=== PATIENT | female | born 1955 ===

== ENCOUNTER 2016-08-25 12:54 | Inpatient (IN) | payer BC ==
[~2016-08-25] VITALS: Ht 162.6 cm; Wt 59.6 kg
[2016-08-25] MEDS ORDERED: PLEASE ENTER HEIGHT AND WEIGHT MC SCH (14:00)
[2016-08-25] MEDS ORDERED: HYDROmorphone 1 MG/ML, 1ML ONE (14:01)
[2016-08-25] MEDS ORDERED: LABETALOL 5MG/ML, 20ML ONE (14:12)
[2016-08-25] MEDS ORDERED: hydrALAzine 20 MG/ML, 1ML IV PRN (14:30)
[2016-08-25] MEDS: ENALAPRILAT 1.25 MG/ML, 2ML IV PRN ×2 (14:53→20:50)
[2016-08-25] MEDS ORDERED: LABETALOL 5MG/ML, 20ML IV PRN (15:00)
[2016-08-25] MEDS ORDERED: CAFFEINE 200 MG PO ONE (15:00)
[2016-08-25] MEDS: FENTANYL PF 100 MCG/2ML IVPush PRN ×4 (15:17→19:04)
[2016-08-25] MEDS: LACTATED RINGERS 1,000 ML IV SCH ×2 (15:22→23:53)
[2016-08-25 15:28] LABS: BLOOD UREA NITROGEN 10 mg/dL (7-18)
[2016-08-25 15:43] LABS: DIFF TOTAL CELLS COUNTED 100 CELL DIFF
[2016-08-25] MEDS: CEFAZOLIN PMX 1GM/50ML 50 ML IV SCH ×2 (16:30→23:52)
[2016-08-25] MEDS: ONDANSETRON 2MG/ML, 2ML IV PRN (18:17)
[2016-08-25] MEDS: DEXAMETHASONE 4 MG/ML, 1ML IVPush SCH (18:18)
[2016-08-25] MEDS ORDERED: ZOLPIDEM 10MG TABLET PO PRN (19:00)
[2016-08-25] MEDS: HYDROmorphone 1 MG/ML, 1ML IV PRN ×2 (19:04→21:32)
[2016-08-25] MEDS: FENTANYL 1500 MCG/30 ML PCA IV PRN (20:19)
[2016-08-25] MEDS ORDERED: ZOLPIDEM 5MG TABLET ONE (21:38)
[2016-08-25] MEDS: LISINOPRIL 10 MG TABLET PO SCH (21:39)
[2016-08-25] MEDS: DOCUSATE 100 MG CAPSULE PO SCH (21:39)
[2016-08-25] MEDS: FAMOTIDINE 20 MG/2 ML IVPush SCH (21:50)
[2016-08-26] MEDS: DEXAMETHASONE 4 MG/ML, 1ML IVPush SCH ×2 (02:34→10:31)
[2016-08-26] MEDS: HYDROmorphone 1 MG/ML, 1ML IV PRN ×6 (02:43→22:14)
[2016-08-26] MEDS: ONDANSETRON 2MG/ML, 2ML IV PRN ×2 (02:49→08:41)
[2016-08-26 03:47] LABS: BLOOD UREA NITROGEN 7 mg/dL (7-18)
[2016-08-26 04:00] VITALS: BP 142/83
[2016-08-26 04:21] LABS: DIFF TOTAL CELLS COUNTED 100 CELL DIFF
[2016-08-26 04:24] LABS: VERIFY COUNTS? YES
[2016-08-26 08:38] LABS: VERIFY COUNTS? YES
[2016-08-26] MEDS: CEFAZOLIN PMX 1GM/50ML 50 ML IV SCH ×2 (08:41→17:10)
[2016-08-26] MEDS: FAMOTIDINE 20 MG/2 ML IVPush SCH ×2 (08:41→20:53)
[2016-08-26] MEDS: LISINOPRIL 10 MG TABLET PO SCH ×2 (08:41→20:54)
[2016-08-26] MEDS ORDERED: FENTANYL 50 MCG PATCH TD SCH (11:00)
[2016-08-26] MEDS ORDERED: CAFFEINE 200 MG PO ONE ×2 (11:00→11:30)
[2016-08-26] MEDS ORDERED: KETOROLAC 30 MG/1 ML IVPush SCH (11:00)
[2016-08-26] MEDS: ENALAPRILAT 1.25 MG/ML, 2ML IV PRN (11:20)
[2016-08-26] MEDS ORDERED: FENTANYL PF 100 MCG/2ML IVPush PRN (11:30)
[2016-08-26] MEDS: KETOROLAC 30 MG/1 ML IVPush PRN ×2 (17:10→23:10)
[2016-08-26] MEDS: FENTANYL 1500 MCG/30 ML PCA IV PRN (18:40)
[2016-08-26] MEDS: OXYcodone/APAP 10/325MG TABLET PO PRN (20:54)
[2016-08-26] MEDS: DOCUSATE 100 MG CAPSULE PO SCH (20:54)
[2016-08-26] MEDS: LACTATED RINGERS 1,000 ML IV SCH ×2 (22:23→22:25)
[2016-08-26] MEDS: ZOLPIDEM 5MG TABLET PO PRN (23:10)
[2016-08-27] MEDS: CEFAZOLIN PMX 1GM/50ML 50 ML IV SCH ×3 (00:13→16:23)
[2016-08-27 03:39] VITALS: BP 105/60
[2016-08-27] MEDS: OXYcodone/APAP 10/325MG TABLET PO PRN ×4 (03:43→20:33)
[2016-08-27] MEDS: KETOROLAC 30 MG/1 ML IVPush PRN ×3 (06:40→19:48)
[2016-08-27] MEDS: HYDROmorphone 1 MG/ML, 1ML IV PRN ×5 (07:00→23:15)
[2016-08-27] MEDS: LISINOPRIL 10 MG TABLET PO SCH ×2 (07:53→20:37)
[2016-08-27] MEDS: FAMOTIDINE 20 MG/2 ML IVPush SCH (07:53)
[2016-08-27 11:00] LABS: BLOOD UREA NITROGEN 8 mg/dL (7-18)
[2016-08-27 11:32] LABS: DIFF TOTAL CELLS COUNTED 100 CELL DIFF
[2016-08-27] MEDS: POTASSIUM CHLORIDE 20 MEQ TAB.ER.PRT PO SCH ×2 (12:13→16:26)
[2016-08-27 12:18] LABS: VERIFY COUNTS? YES
[2016-08-27 19:06] VITALS: BP 99/63
[2016-08-27] MEDS ORDERED: GADOBUTROL 7.5 MMOL/7.5 ML PFS ONE (19:28)
[2016-08-27] MEDS: FENTANYL 1500 MCG/30 ML PCA IV PRN (20:22)
[2016-08-27] MEDS: DOCUSATE 100 MG CAPSULE PO SCH (20:33)
[2016-08-27 20:35] VITALS: BP 107/67
[2016-08-27] MEDS: ZOLPIDEM 5MG TABLET PO PRN (23:15)
[2016-08-27 23:56] VITALS: BP 102/63
[2016-08-28] MEDS: CEFAZOLIN PMX 1GM/50ML 50 ML IV SCH ×3 (01:10→17:18)
[2016-08-28] MEDS: KETOROLAC 30 MG/1 ML IVPush PRN ×4 (01:30→19:18)
[2016-08-28] MEDS: OXYcodone/APAP 10/325MG TABLET PO PRN ×4 (02:25→23:03)
[2016-08-28] MEDS: HYDROmorphone 1 MG/ML, 1ML IV PRN ×5 (03:35→20:46)
[2016-08-28 03:59] VITALS: BP 96/66
[2016-08-28] MEDS: ONDANSETRON 2MG/ML, 2ML IV PRN (07:51)
[2016-08-28 08:12] VITALS: BP 122/74
[2016-08-28] MEDS ORDERED: FAMOTIDINE 20 MG TABLET PO SCH (09:00)
[2016-08-28] MEDS: LISINOPRIL 10 MG TABLET PO SCH (10:03)
[2016-08-28 13:51] VITALS: BP 122/80
[2016-08-28] MEDS ORDERED: ENALAPRILAT 1.25 MG/ML, 2ML IV PRN (14:00)
[2016-08-28] MEDS: METOCLOPRAMIDE 5 MG/ML, 2ML IVPush PRN ×2 (14:26→20:46)
[2016-08-28] MEDS: DIPHENHYDRAMINE 50 MG/ML, 1ML IVPush PRN ×2 (14:26→20:46)
[2016-08-28] MEDS: BUTALB/APAP/CAFFEINE 50MG/325MG/40MG PO PRN ×2 (14:53→19:19)
[2016-08-28] MEDS: POTASSIUM CHLORIDE 20 MEQ TAB.ER.PRT PO SCH ×2 (14:53→20:46)
[2016-08-28] MEDS: FENTANYL 1500 MCG/30 ML PCA IV PRN (17:25)
[2016-08-28] MEDS: DOCUSATE 100 MG CAPSULE PO SCH (20:46)
[2016-08-28] MEDS ORDERED: MAGNESIUM HYDROXIDE 8%, 30ML UDC PO PRN (22:00)
[2016-08-28] MEDS ORDERED: BISACODYL 10 MG SUPP PR PRN (22:00)
[2016-08-28] MEDS ORDERED: SENNA/DOCUSATE TABLET PO PRN (22:00)
[2016-08-28 23:00] VITALS: BP 113/59
[2016-08-28] MEDS: ZOLPIDEM 5MG TABLET PO PRN (23:04)
[2016-08-29] MEDS: CEFAZOLIN PMX 1GM/50ML 50 ML IV SCH ×3 (00:08→17:16)
[2016-08-29] MEDS: KETOROLAC 30 MG/1 ML IVPush PRN ×4 (01:21→21:28)
[2016-08-29] MEDS: BUTALB/APAP/CAFFEINE 50MG/325MG/40MG PO PRN ×4 (01:22→21:28)
[2016-08-29] MEDS: HYDROmorphone 1 MG/ML, 1ML IV PRN ×6 (01:22→23:28)
[2016-08-29 01:29] VITALS: BP 100/66
[2016-08-29] MEDS: OXYcodone/APAP 10/325MG TABLET PO PRN ×4 (05:07→17:58)
[2016-08-29 06:11] LABS: ASPARTATE AMINO TRANSFERASE 16 U/L (15-37); BLOOD UREA NITROGEN 9 mg/dL (7-18)
[2016-08-29 07:31] VITALS: BP 110/84
[2016-08-29] MEDS: POTASSIUM CHLORIDE 20 MEQ TAB.ER.PRT PO SCH (07:58)
[2016-08-29] MEDS ORDERED: THROMBIN 5,000 UNIT VIAL TP ONE (09:04)
[2016-08-29] MEDS: FENTANYL 1500 MCG/30 ML PCA IV PRN (12:33)
[2016-08-29 13:51] VITALS: BP 100/51
[2016-08-29 19:28] VITALS: BP 106/71
[2016-08-29] MEDS: DOCUSATE 100 MG CAPSULE PO SCH (20:16)
[2016-08-30] MEDS: CEFAZOLIN PMX 1GM/50ML 50 ML IV SCH ×2 (01:08→09:10)
[2016-08-30] MEDS: OXYcodone/APAP 10/325MG TABLET PO PRN ×3 (01:08→10:59)
[2016-08-30 01:14] VITALS: BP 138/86
[2016-08-30] MEDS: KETOROLAC 30 MG/1 ML IVPush PRN ×2 (05:00→12:25)
[2016-08-30 06:06] LABS: BLOOD UREA NITROGEN 11 mg/dL (7-18)
[2016-08-30 07:41] VITALS: BP 113/61
[2016-08-30 12:41] VITALS: BP 122/81
[2016-08-30] MEDS ORDERED: BUTA1CAP57 PO (14:58)
[2016-08-30 15:00] VITALS: BP 122/81
[2016-08-30] MEDS: BUTALB/APAP/CAFFEINE 50MG/325MG/40MG PO PRN (15:05)
== END 2016-08-30 16:05 | disposition home or self-care (01) | DRG 151 ==
LOC: CCU 13:05 → 4NOR 08-27 17:40 → DCLOUNGE 08-30 15:40
PROVIDERS: ADMIT Otolaryngology; ATTEND Otolaryngology
PROC: 2Y51X5Z Removal of Nasal Packing Material (ICD-10-PCS; principal; 2016-08-27)
DX: R04.0 Epistaxis (principal); I10 Essential (primary) hypertension; G89.4 Chronic pain syndrome; D72.829 Elevated white blood cell count, unspecified; E87.6 Hypokalemia; D63.8 Anemia in other chronic diseases classified elsewhere; F41.9 Anxiety disorder, unspecified; J32.9 Chronic sinusitis, unspecified; K58.9 Irritable bowel syndrome, unspecified; Z91.048 Other nonmedicinal substance allergy status; Z79.899 Other long term (current) drug therapy
CPT/HCPCS: 36415; 70553; 80048; 80053; 82040; 83735; 84100; 85014; 85018; 85025; 87081; A9585; J0690; J1100; J1170; J1885; J2405; J3010; J1200; J2765; J7120; S0028